=== PATIENT | male | born 1995 | race Two or more races ===

== ENCOUNTER 2022-09-23 13:57 | Inpatient (IN) | payer OTHER ==
[~2022-09-23] VITALS: Ht 167.6 cm; Wt 71.2 kg
[2022-09-23] MEDS ORDERED: NS 1,000 ML IV ONE ×2 (14:25→18:25)
[2022-09-23 14:56] LABS: BASO % 0.4 % (0.0-1.0); EOS # 0.1 10^3/uL (0.0-0.5); HEMATOCRIT 42.5 % (42.0-52.0); HEMOGLOBIN 14.3 g/dl (13.5-17.5); LYMPH # 3.5 10^3/uL (1.5-5.0); LYMPH % 32.3 % (24.0-44.0); MEAN CORPUSCULAR HEMOGLOBIN 30.6 pg (27.0-33.0); MEAN CORPUSCULAR HGB CONC 33.6 g/dl (32.0-36.5); MONO # 1.2 10^3/uL (0.0-0.8); MONO % 11.2 % (2.0-8.0); NEUTROPHILS % 54.7 % (36.0-66.0); PLATELET COUNT, AUTOMATED 231 10^3/uL (150-450); RED BLOOD COUNT 4.67 10^6/uL (4.30-6.10); WHITE BLOOD COUNT 10.9 10^3/uL (4.0-10.0)
[2022-09-23 15:19] LABS: LIPASE 19 U/L (12-53)
[2022-09-23 15:21] LABS: ALBUMIN 3.8 G/DL (3.2-5.2); ALKALINE PHOSPHATASE 97 U/L (46-116); ALT/SGPT 60 U/L (7.0-40); AST/SGOT 26 U/L (<34); BILIRUBIN,DIRECT 0.3 MG/DL (<0.4); BILIRUBIN,TOTAL 0.8 MG/DL (0.3-1.2); BLOOD UREA NITROGEN 17 MG/DL (9-23); CALCIUM LEVEL 8.6 MG/DL (8.5-10.1); CARBON DIOXIDE LEVEL 22 MMOL/L (20-31); CHLORIDE LEVEL 102 MMOL/L (98-107); CREATININE FOR GFR 0.77 MG/DL (0.70-1.30); GLOMERULAR FILTRATION RATE > 60.0 (>60); GLUCOSE, FASTING 100 MG/DL (60-100); SODIUM LEVEL 136 MMOL/L (136-145); TOTAL PROTEIN 7.2 G/DL (5.7-8.2)
[2022-09-23] MEDS ORDERED: ISOVUE-370 76% 100ML VIAL As Ordered ONE (15:29)
[2022-09-23] MEDS ORDERED: metroNIDAZOLE (FLAGYL) 500MG TABLET PO ONE (16:35)
[2022-09-23] MEDS ORDERED: CIPROFLOXACIN 400 MG in IV 1 EA IV ONE (16:35)
[2022-09-23] MEDS ORDERED: CIPR-249 PO (16:51)
[2022-09-23] MEDS ORDERED: METR-265 PO (16:52)
[2022-09-23] MEDS ORDERED: MORPHINE 4 MG/ML 1ML VIAL IV ONE (16:55)
[2022-09-23] MEDS ORDERED: ACETAMINOPHEN TAB 650MG DOSE (2X325MG) PO ONE (18:10)
[2022-09-23] MEDS ORDERED: CEFEPIME HCL 2 GM in D5W MINI-BAG PLUS 50 ML IV ONE (18:15)
[2022-09-23] MEDS ORDERED: NS 1,000 ML IV SCH (18:25)
[2022-09-23] MEDS ORDERED: MORPHINE 2 MG/ML 1ML VIAL IV PRN (18:25)
[2022-09-23] MEDS ORDERED: ONDANSETRON 4MG 2ML VIAL IV PRN (18:25)
[2022-09-23] MEDS ORDERED: KETOROLAC 30 MG/ML 1ML VIAL IV PRN (18:25)
[2022-09-23] MEDS ORDERED: HOME MED LIST COMPLETE! XX SCH (18:50)
[2022-09-23] MEDS: ACETAMINOPHEN TAB 650MG DOSE (2X325MG) PO PRN (19:59)
[2022-09-23 20:00] LABS: RSV AMPLIFICATION NEGATIVE (NEGATIVE)
[2022-09-23] MEDS: PIPERACILLIN/TAZOBACTAM SOD 3.375 GM in D5W MINI-BAG PLUS 50 ML IV SCH (20:19)
[2022-09-24] MEDS: PIPERACILLIN/TAZOBACTAM SOD 3.375 GM in D5W MINI-BAG PLUS 50 ML IV SCH ×4 (02:48→20:16)
[2022-09-24 07:55] LABS: HEMATOCRIT 36.3 % (42.0-52.0); MEAN CORPUSCULAR HEMOGLOBIN 30.8 pg (27.0-33.0); MEAN CORPUSCULAR HGB CONC 33.6 g/dl (32.0-36.5); MEAN CORPUSCULAR VOLUME 91.7 fl (80.0-96.0); PLATELET COUNT, AUTOMATED 208 10^3/uL (150-450); RED BLOOD COUNT 3.96 10^6/uL (4.30-6.10); WHITE BLOOD COUNT 9.4 10^3/uL (4.0-10.0)
[2022-09-24 07:56] LABS: HEMOGLOBIN 12.2 g/dl (13.5-17.5)
[2022-09-24 08:17] LABS: MAGNESIUM LEVEL 1.9 MG/DL (1.8-2.4)
[2022-09-24 08:23] LABS: ALKALINE PHOSPHATASE 87 U/L (46-116); ALT/SGPT 64 U/L (7.0-40); AST/SGOT 33 U/L (<34); BILIRUBIN,TOTAL 1.1 MG/DL (0.3-1.2); BLOOD UREA NITROGEN 13 MG/DL (9-23); CALCIUM LEVEL 8.2 MG/DL (8.5-10.1); CARBON DIOXIDE LEVEL 20 MMOL/L (20-31); CHLORIDE LEVEL 106 MMOL/L (98-107); CREATININE FOR GFR 0.76 MG/DL (0.70-1.30); GLOMERULAR FILTRATION RATE > 60.0 (>60); GLUCOSE, FASTING 93 MG/DL (60-100); POTASSIUM SERUM 3.9 MMOL/L (3.5-5.1); SODIUM LEVEL 137 MMOL/L (136-145); TOTAL PROTEIN 6.1 G/DL (5.7-8.2)
[2022-09-24 13:30] VITALS: BP 117/80
[2022-09-24] MEDS: ACETAMINOPHEN TAB 650MG DOSE (2X325MG) PO PRN (17:24)
[2022-09-24 20:00] VITALS: BP 114/80
[2022-09-25] MEDS: PIPERACILLIN/TAZOBACTAM SOD 3.375 GM in D5W MINI-BAG PLUS 50 ML IV SCH ×2 (02:14→09:02)
[2022-09-25 06:00] VITALS: BP 110/77
[2022-09-25] MEDS ORDERED: ACET1TAB55 PO (07:15)
[2022-09-25] MEDS ORDERED: CIPR-249 PO (07:16)
[2022-09-25] MEDS ORDERED: METR-265 PO (07:16)
[2022-09-25 08:17] LABS: BASO % 0.6 % (0.0-1.0); EOS # 0.4 10^3/uL (0.0-0.5); EOS % 5.5 % (0.0-3.0); HEMATOCRIT 38.9 % (42.0-52.0); LYMPH # 2.9 10^3/uL (1.5-5.0); LYMPH % 42.2 % (24.0-44.0); MEAN CORPUSCULAR HEMOGLOBIN 30.5 pg (27.0-33.0); MEAN CORPUSCULAR HGB CONC 33.4 g/dl (32.0-36.5); MEAN CORPUSCULAR VOLUME 91.3 fl (80.0-96.0); MONO # 0.7 10^3/uL (0.0-0.8); MONO % 9.9 % (2.0-8.0); NEUTROPHILS # 2.9 10^3/uL (1.5-8.5); NEUTROPHILS % 41.2 % (36.0-66.0); PLATELET COUNT, AUTOMATED 230 10^3/uL (150-450); RED BLOOD COUNT 4.26 10^6/uL (4.30-6.10)
[2022-09-25 08:49] LABS: BLOOD UREA NITROGEN 10 MG/DL (9-23); CALCIUM LEVEL 8.7 MG/DL (8.5-10.1); CARBON DIOXIDE LEVEL 26 MMOL/L (20-31); CHLORIDE LEVEL 103 MMOL/L (98-107); GLOMERULAR FILTRATION RATE > 60.0 (>60); GLUCOSE, FASTING 137 MG/DL (60-100); SODIUM LEVEL 136 MMOL/L (136-145)
[2022-09-25] MEDS ORDERED: INFLUENZA QUADRIVALENT PF VACCINE 0.5ML SYRINGE IM.IMMUN ONE (09:00)
== END 2022-09-25 11:40 | disposition home or self-care (01) | DRG 720 ==
LOC: M ED 13:57 → M ED INP 18:25 → ENRESERV 09-24 12:12 → M MSPAV 09-24 13:39
PROVIDERS: ADMIT Internal Medicine; ATTEND Internal Medicine Nephrology
DX: A41.9 Sepsis, unspecified organism (principal); K57.32 Diverticulitis of large intestine without perforation or abscess without bleeding; K59.00 Constipation, unspecified; Z79.2 Long term (current) use of antibiotics; Z20.822 Contact with and (suspected) exposure to COVID-19

== ENCOUNTER 2023-10-15 16:56 | Emergency (ER) | payer MEDICAID, OTHER ==
[~2023-10-15] VITALS: Ht 162.6 cm; Wt 63.4 kg
[~2023-10-15 16:56] MED LIST: ACET1TAB55 PO; CIPR-249 PO; METR-265 PO
[2023-10-15] MEDS ORDERED: IBUPROFEN 600MG TAB PO ONE (17:10)
[2023-10-15] MEDS ORDERED: ACETAMINOPHEN 500 MG TAB PO ONE (18:05)
[2023-10-15] MEDS ORDERED: ACETAMINOPHEN 325 MG TAB PO ONE (20:25)
[2023-10-15 20:55] VITALS: BP 104/87; TEMP 99.9; O2SAT 97
== END 2023-10-15 21:01 | disposition home or self-care (01) ==
LOC: M ED 16:56
DX: J09.X2 Influenza due to identified novel influenza A virus with other respiratory manifestations (principal)

== ENCOUNTER 2025-01-06 10:53 | Emergency (ER) | payer OTHER ==
[~2025-01-06] VITALS: Ht 162.6 cm; Wt 65.0 kg
[2025-01-06 14:57] LABS: BASO # 0.1 10^3/uL (0.0-0.2); BASO % 0.4 % (0.0-1.0); EOS # 0.2 10^3/uL (0.0-0.5); EOS % 1.4 % (0.0-3.0); HEMATOCRIT 43.6 % (42.0-52.0); HEMOGLOBIN 15.1 g/dl (13.5-17.5); LYMPH # 1.8 10^3/uL (1.5-5.0); LYMPH % 11.7 % (24.0-44.0); MEAN CORPUSCULAR HEMOGLOBIN 31.9 pg (27.0-33.0); MEAN CORPUSCULAR HGB CONC 34.6 g/dl (32.0-36.5); MEAN CORPUSCULAR VOLUME 92.2 fl (80.0-96.0); MONO # 1.3 10^3/uL (0.0-0.8); MONO % 8.6 % (2.0-8.0); NEUTROPHILS # 11.6 10^3/uL (1.5-8.5); NEUTROPHILS % 77.4 % (36.0-66.0); PLATELET COUNT, AUTOMATED 311 10^3/uL (150-450); RED BLOOD COUNT 4.73 10^6/uL (4.30-6.10)
[2025-01-06 15:04] LABS: KETONE, URINE AUTO RFX 1+ mg/dL (NEGATIVE); LEUKOCYTE ESTERASE UR AUTO RFX NEGATIVE (NEGATIVE); MUCUS, URINE RFX MODERATE (NEGATIVE); NITRITE, URINE AUTO RFX NEGATIVE (NEGATIVE); RBC, URINE AUTO RFX 5 /HPF (0-3); SQUAM EPITHELIAL CELL UR AURFX 0 /HPF (0-6); WBC, URINE AUTO RFX 1 /HPF (0-3)
[2025-01-06] MEDS: ONDANSETRON 4MG 2ML VIAL IV ONE (15:22)
[2025-01-06] MEDS: KETOROLAC 30 MG/ML 1ML VIAL IV ONE (15:23)
[2025-01-06 15:27] LABS: LIPASE 20 U/L (12-53)
[2025-01-06 15:29] LABS: ALBUMIN 4.1 G/DL (3.2-5.2); ALKALINE PHOSPHATASE 86 U/L (40-129); ALT/SGPT 63 U/L (7.0-40); AST/SGOT 20 U/L (<34); BILIRUBIN,DIRECT 0.3 MG/DL (<0.4); BILIRUBIN,TOTAL 0.8 MG/DL (0.3-1.2); BLOOD UREA NITROGEN 14 MG/DL (9-23); CALCIUM LEVEL 9.4 MG/DL (8.5-10.1); CARBON DIOXIDE LEVEL 24 MMOL/L (20-31); CHLORIDE LEVEL 103 MMOL/L (98-107); CREATININE FOR GFR 0.72 MG/DL (0.70-1.30); GLOMERULAR FILTRATION RATE > 60.0 (>60); GLUCOSE, FASTING 107 MG/DL (60-100); SODIUM LEVEL 138 MMOL/L (136-145); TOTAL PROTEIN 7.9 G/DL (5.7-8.2)
[2025-01-06] MEDS ORDERED: ISOVUE-370 76% 100ML VIAL As Ordered ONE (15:30)
[2025-01-06] MEDS: cefTRIAXone SOD 2 GM in DEXTROSE 5% (D5W) ADV/MINI-BAG 50 ML IV ONE (16:36)
[2025-01-06] MEDS ORDERED: AMOX875T2 PO (17:28)
[2025-01-06] MEDS ORDERED: ONDA-282 PO (17:28)
[2025-01-06 17:33] VITALS: BP 121/73; TEMP 98.3; O2SAT 99
== END 2025-01-06 17:51 | disposition home or self-care (01) ==
LOC: M ED 10:53
DX: K57.32 Diverticulitis of large intestine without perforation or abscess without bleeding (principal); B96.81 Helicobacter pylori [H. pylori] as the cause of diseases classified elsewhere
CPT/HCPCS: 74177; 80048; 80076; 81001; 83690; 85025; 96365; 96375; 99283; J0696; J1885; J2405; Q9967

== ENCOUNTER 2025-01-11 20:44 | Emergency (ER) | payer OTHER ==
[~2025-01-11] VITALS: Ht 162.6 cm; Wt 63.3 kg
[~2025-01-11 20:44] MED LIST changes: +AMOX875T2 PO; +ONDA-282 PO
[2025-01-11 20:53] VITALS: BP 146/79; TEMP 96.3; O2SAT 99
[2025-01-11 22:36] LABS: BASO # 0.1 10^3/uL (0.0-0.2); BASO % 0.5 % (0.0-1.0); EOS # 0.1 10^3/uL (0.0-0.5); EOS % 0.8 % (0.0-3.0); HEMATOCRIT 42.9 % (42.0-52.0); LYMPH # 1.5 10^3/uL (1.5-5.0); LYMPH % 13.6 % (24.0-44.0); MEAN CORPUSCULAR HEMOGLOBIN 31.4 pg (27.0-33.0); MEAN CORPUSCULAR VOLUME 89.9 fl (80.0-96.0); MONO # 0.8 10^3/uL (0.0-0.8); MONO % 7.1 % (2.0-8.0); NEUTROPHILS # 8.6 10^3/uL (1.5-8.5); NEUTROPHILS % 77.4 % (36.0-66.0); PLATELET COUNT, AUTOMATED 408 10^3/uL (150-450); RED BLOOD COUNT 4.77 10^6/uL (4.30-6.10); WHITE BLOOD COUNT 11.1 10^3/uL (4.0-10.0)
[2025-01-11 23:00] LABS: LIPASE 23 U/L (12-53)
[2025-01-11 23:02] LABS: ALBUMIN 4.1 G/DL (3.2-5.2); ALKALINE PHOSPHATASE 82 U/L (40-129); ALT/SGPT 45 U/L (7.0-40); AST/SGOT 18 U/L (<34); BILIRUBIN,DIRECT 0.2 MG/DL (<0.4); BILIRUBIN,TOTAL 0.5 MG/DL (0.3-1.2); BLOOD UREA NITROGEN 21 MG/DL (9-23); CALCIUM LEVEL 9.7 MG/DL (8.5-10.1); CARBON DIOXIDE LEVEL 25 MMOL/L (20-31); CHLORIDE LEVEL 102 MMOL/L (98-107); CREATININE FOR GFR 0.72 MG/DL (0.70-1.30); GLOMERULAR FILTRATION RATE > 60.0 (>60); GLUCOSE, FASTING 134 MG/DL (60-100); POTASSIUM SERUM 4.3 MMOL/L (3.5-5.1); SODIUM LEVEL 139 MMOL/L (136-145); TOTAL PROTEIN 8.1 G/DL (5.7-8.2)
[2025-01-11] MEDS ORDERED: ISOVUE-370 76% 100ML VIAL As Ordered ONE (23:09)
[2025-01-11] MEDS: NS (Normal Saline) 0.9% 1,000 ML IV ONE (23:10)
[2025-01-11] MEDS: METOCLOPRAMIDE INJ 10MG/2ML VIAL IV ONE (23:17)
[2025-01-11] MEDS: PANTOPRAZOLE 40MG VIAL IV ONE (23:17)
[2025-01-12] MEDS: AUGMENTIN 875 MG TAB PO ONE (01:44)
[2025-01-12] MEDS ORDERED: REGL10TA6 PO (01:52)
== END 2025-01-12 02:19 | disposition home or self-care (01) ==
LOC: M ED 20:44
DX: R11.10 Vomiting, unspecified (principal); K57.92 Diverticulitis of intestine, part unspecified, without perforation or abscess without bleeding; Z86.19 Personal history of other infectious and parasitic diseases
CPT/HCPCS: 74177; 80048; 80076; 83690; 85025; 96361; 96374; 96375; 99284; J2470; J2765; Q9967